=== PATIENT | male | born 1985 ===

== ENCOUNTER 2022-07-14 16:10 | Emergency (ER) | payer OTHER ==
[~2022-07-14] VITALS: Ht 180.3 cm; Wt 90.9 kg
[2022-07-14 16:16] VITALS: BP 130/92
[2022-07-14] MEDS ORDERED: CEPHALEXIN MONOHYDRATE 500 MG CAPSULE PO ONE (17:30)
[2022-07-14] MEDS ORDERED: SULFAMETHOX/TRIMETH DS 800-160 MG/TABLET PO ONE (17:30)
[2022-07-14] MEDS ORDERED: CEPH-558 PO (17:32)
[2022-07-14] MEDS ORDERED: SULF-261 PO (17:32)
[2022-07-14] MEDS ORDERED: TRAM-559 PO (17:32)
== END 2022-07-14 17:55 | disposition home or self-care (01) ==
LOC: EDBD 16:15 → EMS 16:15
DX: J34.0 Abscess, furuncle and carbuncle of nose (principal)
CPT/HCPCS: 99283